=== PATIENT | female | born 1985 | race African-American/Black ===

== ENCOUNTER 2016-12-31 00:45 | Emergency (ER) | payer OTHER ==
[~2016-12-31] VITALS: Ht 172.7 cm; Wt 90.0 kg
[~2016-12-31 00:45] MED LIST: FIORICET PO; GABAPENTIN100 MG PO; HYDROCO/APAP1 T11 PO; IMITREX25 MG PO; SINGULAIR10 MG PO; ULTRAM50 M1 PO; XANAX0.5 MG PO; ZYRTEC10 MG PO
[2016-12-31] MEDS ORDERED: FIORICET PO (02:02)
[2016-12-31 02:25] VITALS: BP 128/83
== END 2016-12-31 02:25 | disposition home or self-care (01) | DRG 103 ==
LOC: ED 00:45
DX: G43.909 Migraine, unspecified, not intractable, without status migrainosus (principal)

== ENCOUNTER 2017-02-05 11:07 | Emergency (ER) | payer OTHER ==
[~2017-02-05] VITALS: Ht 172.7 cm; Wt 86.0 kg
[2017-02-05] MEDS ORDERED: FIORICET PO (12:09)
[2017-02-05 12:22] VITALS: BP 107/65
== END 2017-02-05 12:50 | disposition home or self-care (01) | DRG 103 ==
LOC: ED 11:07
DX: G43.909 Migraine, unspecified, not intractable, without status migrainosus (principal)

== ENCOUNTER 2017-03-10 16:39 | Emergency (ER) | payer OTHER ==
[~2017-03-10] VITALS: Ht 170.2 cm; Wt 86.3 kg
[2017-03-10] MEDS ORDERED: PERCOCET 5/325M1 TAB PO (16:50)
[2017-03-10 18:19] VITALS: BP 113/61
== END 2017-03-10 18:20 | disposition home or self-care (01) | DRG 552 ==
LOC: ED 16:39
DX: M54.32 Sciatica, left side (principal); M25.472 Effusion, left ankle; R60.9 Edema, unspecified; Z98.890 Other specified postprocedural states

== ENCOUNTER 2017-03-29 03:52 | Emergency (ER) | payer OTHER ==
[~2017-03-29] VITALS: Ht 170.2 cm; Wt 88.7 kg
[~2017-03-29 03:52] MED LIST changes: +PERCOCET 5/325M1 TAB PO
[2017-03-29 04:52] VITALS: BP 117/81
== END 2017-03-29 04:52 | disposition home or self-care (01) | DRG 103 ==
LOC: ED 03:52
DX: G43.909 Migraine, unspecified, not intractable, without status migrainosus (principal); R11.0 Nausea

== ENCOUNTER 2017-04-09 12:20 | Emergency (ER) | payer OTHER ==
[~2017-04-09] VITALS: Ht 170.2 cm; Wt 80.0 kg
[2017-04-09 12:57] VITALS: BP 134/72
== END 2017-04-09 13:11 | disposition home or self-care (01) | DRG 103 ==
LOC: ED 12:20
DX: G43.909 Migraine, unspecified, not intractable, without status migrainosus (principal)

== ENCOUNTER 2017-05-05 06:14 | Emergency (ER) | payer OTHER ==
[~2017-05-05] VITALS: Ht 170.2 cm; Wt 89.0 kg
[2017-05-05] MEDS ORDERED: CORTISPORIN OTI10 ML AU (06:39)
[2017-05-05] MEDS ORDERED: FIORICET PO (06:39)
[2017-05-05 07:25] VITALS: BP 113/73
[2017-05-06] MEDS ORDERED: SUMATRIPTAN25 MG PO (16:40)
[2017-05-06] MEDS ORDERED: SUMATRIPTAN IN (16:42)
== END 2017-05-05 08:19 | disposition home or self-care (01) | DRG 103 ==
LOC: ED 06:14
DX: G43.909 Migraine, unspecified, not intractable, without status migrainosus (principal); R11.0 Nausea

== ENCOUNTER 2017-05-06 16:08 | Emergency (ER) | payer OTHER ==
[~2017-05-06] VITALS: Ht 170.2 cm; Wt 87.0 kg
[~2017-05-06 16:08] MED LIST changes: +CORTISPORIN OTI10 ML AU
[2017-05-06] MEDS ORDERED: SUMATRIPTAN25 MG PO (16:40)
[2017-05-06] MEDS ORDERED: SUMATRIPTAN IN (16:42)
[2017-05-06 16:52] VITALS: BP 107/70
== END 2017-05-06 17:11 | disposition home or self-care (01) | DRG 103 ==
LOC: ED 16:08
DX: R51 Headache (principal)

== ENCOUNTER 2017-06-01 23:36 | Emergency (ER) | payer OTHER ==
[~2017-06-01] VITALS: Ht 170.2 cm; Wt 88.0 kg
[~2017-06-01 23:36] MED LIST changes: +SUMATRIPTAN IN; +SUMATRIPTAN25 MG PO
[2017-06-02] MEDS ORDERED: FIORICET PO (00:02)
[2017-06-02 00:27] VITALS: BP 120/68
== END 2017-06-02 00:34 | disposition home or self-care (01) | DRG 103 ==
LOC: ED 23:36
DX: G43.909 Migraine, unspecified, not intractable, without status migrainosus (principal)

== ENCOUNTER 2017-06-29 02:35 | Emergency (ER) | payer OTHER ==
[~2017-06-29] VITALS: Ht 170.2 cm; Wt 88.0 kg
[2017-06-29 04:36] VITALS: BP 122/72
== END 2017-06-29 04:36 | disposition home or self-care (01) | DRG 103 ==
LOC: ED 02:35
DX: G43.909 Migraine, unspecified, not intractable, without status migrainosus (principal)

== ENCOUNTER 2017-07-22 10:23 | Emergency (ER) | payer OTHER ==
[~2017-07-22] VITALS: Ht 170.2 cm; Wt 80.0 kg
[2017-07-22] MEDS ORDERED: PERCOCET 5/325M1 TAB PO (10:54)
[2017-07-22] MEDS ORDERED: PHENERGAN25 MG/TAB PO (10:55)
[2017-07-22 11:25] VITALS: BP 105/63
== END 2017-07-22 11:30 | disposition home or self-care (01) | DRG 103 ==
LOC: ED 10:23
DX: G43.809 Other migraine, not intractable, without status migrainosus (principal)

== ENCOUNTER 2017-08-11 23:42 | Emergency (ER) | payer OTHER ==
[~2017-08-11] VITALS: Ht 170.2 cm; Wt 88.6 kg
[~2017-08-11 23:42] MED LIST changes: +PHENERGAN25 MG/TAB PO
[2017-08-12] MEDS ORDERED: ULTRAM50 M1 PO (00:19)
[2017-08-12 00:32] VITALS: BP 111/73
== END 2017-08-12 00:43 | disposition home or self-care (01) | DRG 103 ==
LOC: ED 23:42
DX: G43.909 Migraine, unspecified, not intractable, without status migrainosus (principal)

== ENCOUNTER 2017-09-08 15:42 | Emergency (ER) | payer OTHER ==
[~2017-09-08] VITALS: Ht 170.2 cm; Wt 90.0 kg
[2017-09-08 18:40] VITALS: BP 101/60
== END 2017-09-08 18:40 | disposition home or self-care (01) | DRG 103 ==
LOC: ED 15:42
DX: G43.909 Migraine, unspecified, not intractable, without status migrainosus (principal)

== ENCOUNTER 2018-03-02 07:28 | Emergency (ER) | payer OTHER ==
[~2018-03-02] VITALS: Ht 170.2 cm; Wt 96.0 kg
[2018-03-02] MEDS ORDERED: PRENATA3 PO (07:35)
[2018-03-02 08:45] LABS: HEMATOCRIT 33.8 % (37.0-47.0); HEMOGLOBIN 11.2 g/dl (12.0-16.0); IMMATURE GRANULOCYTES 0.3 % (0.0-1.0); MEAN CELL VOLUME 89.7 fL CALC (80.0-100.0); MEAN CORPUSCULAR HGB 29.7 pG CALC (26.0-32.0); MEAN CORPUSCULAR HGB CONC 33.1 g/L CALC (32.0-36.0); NEUT# 6.28 thou/uL (2.00-7.15); RED BLOOD COUNT 3.77 mill/uL (4.20-5.60); RED CELL DISTRI WIDTH 14.6 % (11.5-15.5)
[2018-03-02 09:01] LABS: ALKALINE PHOSPHATASE 59 u/l (38-126); ANION GAP 12 (6-22 (CALC)); BILIRUBIN, TOTAL 0.4 mg/dL (0.0-1.4); BUN 7 mg/dL (7-17); BUN/CREATININE RATIO 15 (12-20 (CALC)); CARBON DIOXIDE 22 mmol/l (22-30); CHLORIDE 106 mmol/l (95-108); CREATININE 0.5 mg/dL (0.5-1.0); GFR > 60 ML/MIN (>=60 (CALC)); GFR FOR AFR.AMER. > 60 ML/MIN (>=60 (CALC)); POTASSIUM 3.6 mmol/l (3.5-5.1); SGOT/AST 23 u/l (14-36); SGPT/ALT 41 u/l (9-52); SODIUM 137 mmol/l (137-146); TOTAL PROTEIN 6.5 g/dL (6.3-8.2)
[2018-03-02 09:03] LABS: ALBUMIN 3.2 g/dL (3.2-5.0)
[2018-03-02 09:43] LABS: URINE BILIRUBIN - DIPSTICK NEGATIVE (NEGATIVE); URINE BLOOD DIPSTICK NEGATIVE (NEGATIVE); URINE COLOR YELLOW; URINE GLUCOSE - DIPSTICK NEGATIVE (NEGATIVE); URINE KETONE TRACE mg/dL (NEGATIVE); URINE NITRITE - DIPSTICK NEGATIVE (Negative); URINE PROTEIN - DIPSTICK NEGATIVE (NEG-TRACE); URINE SPECIFIC GRAVITY 1.015
[2018-03-02 10:12] LABS: URINE LEUK ESTERASE SMALL (NEGATIVE)
[2018-03-02 10:13] LABS: URINE BACTERIA MANY hpf; URINE CLARITY CLOUDY; URINE RBC 25-50 RBC/hpf (0-5); URINE SQUAMOUS EPITHELIAL CELL MANY EPI/hpf (0-FEW); URINE WBC 0-2 WBC/hpf (0-5)
[2018-03-02] MEDS ORDERED: DULCOLAX10 MG RE (10:59)
[2018-03-02] MEDS ORDERED: MACROBID100 MG PO (11:02)
[2018-03-02 11:05] VITALS: BP 106/65
== END 2018-03-02 11:11 | disposition home or self-care (01) | DRG 781 ==
LOC: ED 07:28
PROVIDERS: Emergency Medicine
DX: O99.612 Diseases of the digestive system complicating pregnancy, second trimester (principal); K59.00 Constipation, unspecified; O23.42 Unspecified infection of urinary tract in pregnancy, second trimester; Z3A.24 24 weeks gestation of pregnancy

== ENCOUNTER 2018-06-04 13:42 | Emergency (ER) | payer OTHER ==
[~2018-06-04] VITALS: Ht 170.2 cm; Wt 85.0 kg
[~2018-06-04 13:42] MED LIST changes: +DULCOLAX10 MG RE; +MACROBID100 MG PO; +PRENATA3 PO
[2018-06-04 15:45] VITALS: BP 118/79
== END 2018-06-04 15:45 | disposition home or self-care (01) | DRG 103 ==
LOC: ED 13:42
DX: G43.909 Migraine, unspecified, not intractable, without status migrainosus (principal)

== ENCOUNTER 2018-08-28 09:20 | Emergency (ER) | payer OTHER ==
[~2018-08-28] VITALS: Ht 170.2 cm; Wt 81.8 kg
[2018-08-28] MEDS ORDERED: SUMATRIPTAN25 MG PO (09:45)
[2018-08-28] MEDS ORDERED: PERCOCET 5/325M1 TAB PO (09:45)
[2018-08-28 11:28] VITALS: BP 118/68
== END 2018-08-28 11:56 | disposition home or self-care (01) | DRG 103 ==
LOC: ED 09:20
DX: G43.909 Migraine, unspecified, not intractable, without status migrainosus (principal)
CPT/HCPCS: J0131

== ENCOUNTER 2018-09-12 06:56 | Emergency (ER) | payer OTHER ==
[~2018-09-12] VITALS: Ht 170.2 cm; Wt 79.5 kg
[2018-09-12] MEDS ORDERED: ZOFRAN ODT4 MG PO (07:54)
[2018-09-12 08:42] VITALS: BP 109/77
== END 2018-09-12 08:57 | disposition home or self-care (01) | DRG 103 ==
LOC: ED 06:56
DX: G43.909 Migraine, unspecified, not intractable, without status migrainosus (principal)
CPT/HCPCS: J0131

== ENCOUNTER 2018-09-18 19:39 | Emergency (ER) | payer OTHER ==
[~2018-09-18] VITALS: Ht 170.2 cm; Wt 84.0 kg
[~2018-09-18 19:39] MED LIST changes: +ZOFRAN ODT4 MG PO
[2018-09-18] MEDS ORDERED: FIORICET PO (21:06)
[2018-09-18 21:40] VITALS: BP 124/72
== END 2018-09-18 21:52 | disposition home or self-care (01) | DRG 103 ==
LOC: ED 19:39
DX: G43.909 Migraine, unspecified, not intractable, without status migrainosus (principal)

== ENCOUNTER 2018-10-29 19:55 | Emergency (ER) | payer OTHER ==
[~2018-10-29] VITALS: Ht 170.2 cm; Wt 81.6 kg
[2018-10-29] MEDS ORDERED: TOPAMAX100 M1 PO (20:25)
[2018-10-29] MEDS ORDERED: DEPO-PROVER400 MG/ML IM (20:26)
[2018-10-29 21:08] VITALS: BP 119/80
== END 2018-10-29 21:13 | disposition home or self-care (01) | DRG 103 ==
LOC: ED 19:55
DX: R51 Headache (principal)

== ENCOUNTER 2018-11-05 20:18 | Emergency (ER) | payer OTHER ==
[~2018-11-05] VITALS: Ht 170.2 cm; Wt 80.6 kg
[~2018-11-05 20:18] MED LIST changes: +DEPO-PROVER400 MG/ML IM; +TOPAMAX100 M1 PO
[2018-11-05] MEDS ORDERED: IMITREX50 MG PO (21:33)
[2018-11-05] MEDS ORDERED: MEDROXYPR A150 MG/M1 IM (21:33)
[2018-11-05 22:05] VITALS: BP 119/79
== END 2018-11-05 22:07 | disposition home or self-care (01) | DRG 103 ==
LOC: ED 20:18
DX: G43.909 Migraine, unspecified, not intractable, without status migrainosus (principal); J02.9 Acute pharyngitis, unspecified
CPT/HCPCS: J0131

== ENCOUNTER 2018-11-20 08:32 | Emergency (ER) | payer OTHER ==
[~2018-11-20] VITALS: Ht 170.2 cm; Wt 80.0 kg
[~2018-11-20 08:32] MED LIST changes: +IMITREX50 MG PO; +MEDROXYPR A150 MG/M1 IM
[2018-11-20 11:03] VITALS: BP 118/72
== END 2018-11-20 11:14 | disposition home or self-care (01) | DRG 103 ==
LOC: ED 08:32
DX: R51 Headache (principal)
CPT/HCPCS: J0131

== ENCOUNTER 2019-02-04 20:27 | Emergency (ER) | payer OTHER ==
[~2019-02-04] VITALS: Ht 170.2 cm; Wt 75.0 kg
[2019-02-04 22:10] VITALS: BP 111/69
== END 2019-02-04 22:10 | disposition home or self-care (01) ==
LOC: ED 20:27
DX: G43.909 Migraine, unspecified, not intractable, without status migrainosus (principal); R11.2 Nausea with vomiting, unspecified; H53.149 Visual discomfort, unspecified

== ENCOUNTER 2019-02-25 20:20 | Emergency (ER) | payer OTHER ==
[~2019-02-25] VITALS: Ht 170.2 cm; Wt 90.0 kg
[2019-02-25 23:15] VITALS: BP 118/77
== END 2019-02-25 23:21 | disposition home or self-care (01) ==
LOC: ED 20:20
DX: G43.909 Migraine, unspecified, not intractable, without status migrainosus (principal); R11.2 Nausea with vomiting, unspecified; H53.149 Visual discomfort, unspecified
CPT/HCPCS: J0131

== ENCOUNTER 2019-03-11 18:28 | Emergency (ER) | payer OTHER ==
[~2019-03-11] VITALS: Ht 170.2 cm; Wt 77.0 kg
[2019-03-11] MEDS ORDERED: FLEXERIL5 M1 PO (20:02)
[2019-03-11 20:05] VITALS: BP 100/62
== END 2019-03-11 20:05 | disposition home or self-care (01) | DRG 552 ==
LOC: ED 18:28
DX: S16.1XXA Strain of muscle, fascia and tendon at neck level, initial encounter (principal); S76.011A Strain of muscle, fascia and tendon of right hip, initial encounter; V49.40XA Driver injured in collision with unspecified motor vehicles in traffic accident, initial encounter

== ENCOUNTER 2019-04-23 00:01 | Emergency (ER) | payer OTHER ==
[~2019-04-23] VITALS: Ht 170.2 cm; Wt 90.0 kg
[~2019-04-23 00:01] MED LIST changes: +FLEXERIL5 M1 PO
[2019-04-23 01:49] VITALS: BP 117/80
== END 2019-04-23 02:00 | disposition home or self-care (01) ==
LOC: ED 00:01
DX: G43.909 Migraine, unspecified, not intractable, without status migrainosus (principal)
CPT/HCPCS: J0131

== ENCOUNTER 2021-10-22 16:12 | Emergency (ER) | payer OTHER ==
[~2021-10-22] VITALS: Ht 170.2 cm; Wt 97.0 kg
[2021-10-22 18:07] LABS: HEMOGLOBIN 12.8 g/dl (12.0-16.0); IMMATURE GRANULOCYTES 0.1 % (0.0-5.0); MEAN CELL VOLUME 89.9 fL CALC (80.0-100.0); MEAN CORPUSCULAR HGB 28.8 pG CALC (26.0-32.0); NEUT# 4.21 thou/uL (2.00-7.15); RED BLOOD COUNT 4.45 mill/uL (4.20-5.60); RED CELL DISTRI WIDTH 14.4 % (11.5-15.5)
[2021-10-22 18:24] LABS: ANION GAP 10 (6-22 (CALC)); BUN 14 mg/dL (7-17); BUN/CREATININE RATIO 17 (12-20 (CALC)); CARBON DIOXIDE 25 mmol/l (22-30); CHLORIDE 107 mmol/l (95-108); CREATININE 0.8 mg/dL (0.5-1.0); GFR > 60 ML/MIN (>=60 (CALC)); GFR FOR AFR.AMER. > 60 ML/MIN (>=60 (CALC)); POTASSIUM 3.7 mmol/l (3.5-5.1); SODIUM 138 mmol/l (137-146)
[2021-10-22 20:13] VITALS: BP 128/83
== END 2021-10-22 20:13 | disposition home or self-care (01) | DRG 103 ==
LOC: ED 16:12
PROVIDERS: Family Medicine
DX: G43.909 Migraine, unspecified, not intractable, without status migrainosus (principal); Z20.822 Contact with and (suspected) exposure to COVID-19

== ENCOUNTER 2022-10-13 20:51 | Emergency (ER) | payer OTHER ==
[~2022-10-13] VITALS: Ht 170.2 cm; Wt 97.7 kg
[2022-10-13] MEDS ORDERED: PROTONIX20 M1 PO (21:12)
[2022-10-13 21:15] VITALS: BP 121/80
[2022-10-13 22:00] VITALS: BP 117/76
[2022-10-13 22:02] LABS: BASO% 0.4 % (0-3); EOS% 1.4 % (0-8); HEMATOCRIT 40.1 % (37.0-47.0); HEMOGLOBIN 13.2 g/dl (12.0-16.0); IMMATURE GRANULOCYTES 0.1 % (0.0-5.0); LYMPH% 21.2 % (15-41); MEAN CELL VOLUME 90.1 fL CALC (80.0-100.0); MEAN CORPUSCULAR HGB 29.7 pG CALC (26.0-32.0); MEAN CORPUSCULAR HGB CONC 32.9 g/dL CAL (32.0-36.0); MONO% 8.9 % (2-13); NEUT# 7.52 thou/uL (2.00-7.15); RED BLOOD COUNT 4.45 mill/uL (4.20-5.60); RED CELL DISTRI WIDTH 14.5 % (11.5-15.5)
[2022-10-13 22:04] LABS: URINE BILIRUBIN - DIPSTICK NEGATIVE (NEGATIVE); URINE BLOOD DIPSTICK LARGE (NEGATIVE); URINE GLUCOSE - DIPSTICK NEGATIVE (NEGATIVE); URINE KETONE NEGATIVE (NEGATIVE); URINE LEUK ESTERASE TRACE (NEGATIVE); URINE PROTEIN - DIPSTICK 30 mg/dL (NEG-TRACE); URINE SPECIFIC GRAVITY 1.025; URINE UROBILINOGEN - DIPSTICK 0.2 E.U./dL (0.2)
[2022-10-13 22:05] LABS: URINE COLOR AMBER
[2022-10-13 22:06] LABS: URINE NITRITE - DIPSTICK NEGATIVE (Negative)
[2022-10-13 22:12] LABS: URINE RBC 50-100 RBC/hpf (0-5); URINE SQUAMOUS EPITHELIAL CELL FEW EPI/hpf (0-FEW)
[2022-10-13 22:17] LABS: ALKALINE PHOSPHATASE 68 u/l (38-126); ANION GAP 10 (6-22 (CALC)); BILIRUBIN, TOTAL 0.3 mg/dL (0.0-1.4); BUN 11 mg/dL (7-17); BUN/CREATININE RATIO 15 (12-20 (CALC)); CARBON DIOXIDE 28 mmol/l (22-30); CHLORIDE 105 mmol/l (95-108); CREATININE 0.8 mg/dL (0.5-1.0); GFR FOR AFR.AMER. > 60 ML/MIN (>=60 (CALC)); GFR OTHER RACES > 60 ML/MIN (>=60 (CALC)); POTASSIUM 3.5 mmol/l (3.5-5.1); SGOT/AST 28 u/l (14-36); SODIUM 139 mmol/l (137-146); TOTAL PROTEIN 7.8 g/dL (6.3-8.2)
[2022-10-13 22:20] LABS: ALBUMIN 4.4 g/dL (3.2-5.0)
[2022-10-13 22:30] VITALS: BP 112/74
[2022-10-13] MEDS ORDERED: PROTONIX40 M2 PO (22:33)
[2022-10-13] MEDS ORDERED: IMITREX100 M1 PO (22:33)
[2022-10-13 22:59] VITALS: BP 112/74
== END 2022-10-13 23:04 | disposition home or self-care (01) | DRG 103 ==
LOC: ED 20:51
PROVIDERS: Family Medicine
DX: G43.909 Migraine, unspecified, not intractable, without status migrainosus (principal); R07.89 Other chest pain; K21.00 Gastro-esophageal reflux disease with esophagitis, without bleeding

== ENCOUNTER 2022-10-21 22:14 | Emergency (ER) | payer OTHER ==
[~2022-10-21] VITALS: Ht 170.2 cm; Wt 99.0 kg
[~2022-10-21 22:14] MED LIST changes: +IMITREX100 M1 PO; +PROTONIX20 M1 PO; +PROTONIX40 M2 PO
[2022-10-21 22:40] VITALS: BP 126/74
[2022-10-21 23:00] VITALS: BP 106/71
[2022-10-21 23:10] LABS: BASO% 0.4 % (0-3); EOS% 0.6 % (0-8); HEMATOCRIT 37.7 % (37.0-47.0); HEMOGLOBIN 12.7 g/dl (12.0-16.0); IMMATURE GRANULOCYTES 0.1 % (0.0-5.0); LYMPH% 27.8 % (15-41); MEAN CELL VOLUME 89.3 fL CALC (80.0-100.0); MEAN CORPUSCULAR HGB 30.1 pG CALC (26.0-32.0); MEAN CORPUSCULAR HGB CONC 33.7 g/dL CAL (32.0-36.0); MONO% 12.9 % (2-13); NEUT# 4.56 thou/uL (2.00-7.15); NEUT% 58.2 % (42-76); RED BLOOD COUNT 4.22 mill/uL (4.20-5.60); RED CELL DISTRI WIDTH 14.3 % (11.5-15.5)
[2022-10-21 23:23] LABS: ALBUMIN 4.4 g/dL (3.2-5.0); ALKALINE PHOSPHATASE 50 u/l (38-126); BUN 9 mg/dL (7-17); BUN/CREATININE RATIO 12 (12-20 (CALC)); CARBON DIOXIDE 23 mmol/l (22-30); CHLORIDE 104 mmol/l (95-108); CREATININE 0.7 mg/dL (0.5-1.0); GFR FOR AFR.AMER. > 60 ML/MIN (>=60 (CALC)); GFR OTHER RACES > 60 ML/MIN (>=60 (CALC)); SGOT/AST 35 u/l (14-36); SODIUM 136 mmol/l (137-146); TOTAL PROTEIN 7.6 g/dL (6.3-8.2)
[2022-10-21 23:24] LABS: ANION GAP 14 (6-22 (CALC)); BILIRUBIN, TOTAL 0.6 mg/dL (0.0-1.4); POTASSIUM 4.7 mmol/l (3.5-5.1)
[2022-10-21] MEDS ORDERED: CYCLOBENZAPRINE10 MG PO (23:40)
[2022-10-21] MEDS ORDERED: ULTRAM50 MG PO (23:40)
[2022-10-22] VITALS: BP 95/65
[2022-10-22 00:44] VITALS: BP 95/65
== END 2022-10-22 00:53 | disposition home or self-care (01) | DRG 948 ==
LOC: ED 22:14
PROVIDERS: Emergency Medicine
DX: R53.1 Weakness (principal); M79.10 Myalgia, unspecified site

== ENCOUNTER 2023-03-24 15:16 | Emergency (ER) | payer OTHER ==
[2023-03-24] VITALS (8 sets, daily range): BP systolic 87–111; BP diastolic 55–77
[~2023-03-24] VITALS: Ht 170.2 cm; Wt 98.2 kg
[~2023-03-24 15:16] MED LIST changes: +CYCLOBENZAPRINE10 MG PO; +ULTRAM50 MG PO
== END 2023-03-24 18:48 | disposition home or self-care (01) | DRG 392 ==
LOC: ED 15:16
DX: R10.12 Left upper quadrant pain (principal)